=== PATIENT | male | born 1990 | race Two or more races ===

== ENCOUNTER 2019-10-03 17:15 | Emergency (ER) | payer OTHER ==
[~2019-10-03] VITALS: Ht 170.2 cm; Wt 68.0 kg
[2019-10-03] MEDS ORDERED: KETOROLAC TROMETHAMINE INJ 60 MG/2 ML VIAL IM ONE (18:30)
[2019-10-03] MEDS ORDERED: METHOCARBAMOL (750MG) 750 MG TABLET PO SCH (18:30)
[2019-10-03] MEDS ORDERED: KETOROLAC TROMETHAMINE INJ 30 MG/ML VIAL ONE (18:31)
[2019-10-03] MEDS ORDERED: METHOCARBAMOL (500MG) 500 MG TABLET ONE (18:32)
--- NOTE | 2019-10-03 19:00 | NUR ---
patient came in to the ER c/o back pain 4hrs [employer]. on room air, denies any injury. Breathing evenly and unlabored. kept comfortable, will continue to monitor accordingly.
--- NOTE | 2019-10-03 19:09 | NUR ---
report given to [place] V[place] for dony.
--- NOTE | 2019-10-03 19:41 | NUR ---
PATIENT AMBULATED TO RESTROOM W/O ASSISTANCE. GAIT IS STEADY. AMBULATED WELL.
[2019-10-03 19:53] VITALS: BP 132/66
--- NOTE | 2019-10-03 19:53 | NUR ---
Patient discharged to home in stable condition. Written and verbal after care instructions given. Patient verbalizes understanding of instruction. Patient is ambulatory with a steady gait. INSTRUCTED NOT TO DRIVE FOLLOWING TAKING PRESCRIBED MEDICATIONS.
== END 2019-10-03 20:00 | disposition home or self-care (01) ==
LOC: ER 17:15
DX: M54.5 Low back pain (principal); G89.29 Other chronic pain; R25.2 Cramp and spasm; F11.10 Opioid abuse, uncomplicated
CPT/HCPCS: 96372; 99283; J1885